=== PATIENT | male | born 1985 | race Caucasian/White ===

== ENCOUNTER → 2016-09-07 | Outpatient (CLI) | payer OTHER ==
[2016-09-07 12:48] LABS: WET PREP SPERM 5-10 MOTILE /HPF (NONE SEEN)
[2016-09-07 12:49] LABS: SEMEN WET PREP WBC 0-2 /HPF
== END ==
LOC: CLAB 12:31
DX: Z30.2 Encounter for sterilization (principal)
CPT/HCPCS: 89321

== ENCOUNTER → 2016-10-06 | Outpatient (CLI) | payer OTHER ==
[2016-10-06 09:21] LABS: SEMEN WET PREP WBC 0-2 /HPF
== END ==
LOC: CLAB 08:31
DX: Z30.2 Encounter for sterilization (principal)
CPT/HCPCS: 89321

== ENCOUNTER → 2016-10-20 | Outpatient (CLI) | payer OTHER ==
[2016-10-20 09:03] LABS: SEMEN WET PREP WBC 0-2 /HPF; WET PREP SPERM NONE SEEN /HPF (NONE SEEN)
== END ==
LOC: CLAB 08:28
PROVIDERS: ATTEND Internal Medicine
DX: Z30.2 Encounter for sterilization (principal)
CPT/HCPCS: 89321